=== PATIENT | male | born 1935 ===

== ENCOUNTER 2018-02-10 19:35 | Emergency (ER) | payer SELFPAY ==
[2018-02-10 19:50] VITALS: RESP 18; O2SAT 99
[2018-02-10 20:55] LABS: BASO # 0.1 K/uL (0.0-0.2); EOS # 0.1 K/uL (0.0-0.7); EOS % 2.2 % (0.0-4.0); HEMOGLOBIN 12.9 g/dL (12.0-18.0); LYMPH # 1.5 K/uL (1.0-4.3); LYMPH % 29.5 % (20.0-40.0); MEAN CELL VOLUME 88.4 fl (80.0-94.0); MEAN PLATELET VOLUME 8.9 fl (7.2-11.7); MONO # 0.7 K/uL (0.0-0.8); MONO % 12.9 % (0.0-10.0); NEUT # 2.8 K/uL (1.8-7.0); NEUT % 54.4 % (50.0-75.0); NRBC % 0.1 % (0.0-0.0); RBC 4.3 Mil/uL (4.40-5.90); RED CELL DISTRIBUTION WIDTH 13.1 % (11.5-14.5); WHITE BLOOD COUNT 5.2 K/uL (4.8-10.8)
[2018-02-10 21:08] LABS: INR 0.9; PROTHROMBIN TIME 10.2 Seconds (9.8-13.1)
--- NOTE | 2018-02-10 21:10 | ED PDOC ---
HPI: SOB/CHF/COPD Time Seen by Provider: 02/10/18 19:58 Chief Complaint (Nursing): Chest Pain Chief Complaint (Provider): Shortness of breath History Per: Patient History/Exam Limitations: no limitations Onset/Duration Of Symptoms: Hrs (x 3) Current Symptoms Are (Timing): Still Present Additional Complaint(s): 82 year old male presents to the ED with sudden onset of shortness of breath, lightheadedness and anxiousness beginning around 6pm today. Patient ate dinner 1/2 hour prior to onset. He is concerned about symptoms because he lives by himself. Currently, he feels better and now only reports mild shortness of breath. Denies chest pain, cough and leg swelling. PMD: none Past Medical History Reviewed: Historical Data, Nursing Documentation, Vital Signs Vital Signs: Last Vital Signs Temp 98.8 F 02/10/18 19:42 Pulse 71 02/10/18 19:42 Resp 18 02/10/18 19:42 BP 147/65 02/10/18 19:42 Pulse Ox 99 02/10/18 19:42 - Medical History PMH: No Chronic Diseases - Surgical History Surgical History: No Surg Hx - Family History Family History: States: No Known Family Hx - Social History Current smoker - smoking cessation education provided: No Alcohol: None Drugs: Denies - Allergies Allergies/Adverse Reactions: Allergies Allergy/AdvReac Type Severity Reaction Status Date / Time No Known Allergies Allergy Verified 02/10/18 19:42 Review of Systems ROS Statement: Except As Marked, All Systems Reviewed And Found Negative (and as per HPI) Constitutional: Positive for: Other (lightheadedness) Respiratory: Positive for: Shortness of Breath Psych: Positive for: Anxiety Physical Exam - Reviewed Nursing Documentation Reviewed: Yes Vital Signs Reviewed: Yes - Physical Exam Appears: Positive for: Well, Non-toxic, No Acute Distress Head Exam: Positive for: ATRAUMATIC, NORMAL INSPECTION, NORMOCEPHALIC Skin: Positive for: Warm, Dry, Pallor (mild) Eye Exam: Positive for: EOMI, Normal appearance, PERRL ENT: Positive for: Pharynx Is (clear), Other (tacky mucous membranes) Cardiovascular/Chest: Positive for: Regular Rate, Rhythm. Negative for: Murmur Respiratory: Positive for: Normal Breath Sounds. Negative for: Respiratory Distress Gastrointestinal/Abdominal: Positive for: Soft. Negative for: Tenderness Back: Positive for: Normal Inspection. Negative for: Decreased ROM Extremity: Positive for: Normal ROM. Negative for: Deformity Lymphatic: Negative for: Adenopathy Neurologic/Psych: Positive for: Alert, Mood/Affect (anxious ). Negative for: Motor/Sensory Deficits - Laboratory Results Result Diagrams: 02/10/18 20:48 02/10/18 20:48 - ECG ECG: Positive for: Interpreted By Me, Viewed By Me ECG Rhythm: Positive for: Normal QRS, Normal ST Segment, Sinus Rhythm (normal) Rate: 83 O2 Sat by Pulse Oximetry: 99 (RA) Pulse Ox Interpretation: Normal Medical Decision Making Medical Decision Makin:09 Impression: Shortness of breath Differential diagnoses include but are not limited to: anxiousness, electrolyte abnormalities, reflux and CHF Initial Plan: --Blood type --EKG --alcohol --BNP --CMP --mag Phos --TSH --Troponin --Urine dip --CBC --D Dimer --PTT/ INR --CXR 22:14 Patient's labs demonstrated no clinically significant abnormalities. Chest X- ray with no acute findings. Discussed findings with patient and patient is stable for discharge with follow up at clinic. ------- Scribe Attestation: Documented by Corinna Hughes and Shlomo Rodriguez acting as a scribe for Shirlene Mcneil MD Provider Scribe Attestation: All medical record entries made by the Scribe were at my direction and personally dictated by me. I have reviewed the chart and agree that the record accurately reflects my personal performance of the history, physical exam, medical decision making, and the department course for this patient. I have also personally directed, reviewed, and agree with the discharge instructions and disposition. Disposition - Clinical Impression Clinical Impression: Dyspnea - Disposition Referrals: [facility] [Outside] Disposition: Routine/Home Disposition Time: 22:30 Condition: IMPROVED Additional Instructions: VISITA A LA CLINICA POR LA MANANA A CHEQAR DE NUEVO Instructions: Shortness of Breath (Dyspnea) (DC)
[2018-02-10 21:11] LABS: PARTIAL THROMBOPLASTIN TIME 31.4 Seconds (25.6-37.1)
[2018-02-10 21:13] LABS: ALB/GLOB RATIO 1.3 (1.0-2.1); ALT/SGPT 19 U/L (21-72); AST/SGOT 24 U/L (17-59); BLOOD UREA NITROGEN 12 mg/dl (9-20); CALCIUM 8.8 mg/dL (8.4-10.2); D DIMER < 200 ng/mlDDU (0-230); GFR NON-AFRICAN AMERICAN > 60
[2018-02-10 21:22] LABS: B-TYPE NATRIURETIC PEPTIDE 243 pg/ml (0-900)
[2018-02-10 21:49] VITALS: BP 122/78
[2018-02-10 22:46] VITALS: TEMP 98.2
--- NOTE | 2018-02-11 08:39 | RAD ---
Date of service: 02/10/2018 HISTORY: sob COMPARISON: No prior. FINDINGS: LUNGS: No active pulmonary disease. PLEURA: No significant pleural effusion identified, no pneumothorax apparent. CARDIOVASCULAR: Normal. OSSEOUS STRUCTURES: No significant abnormalities. VISUALIZED UPPER ABDOMEN: Normal. OTHER FINDINGS: None. IMPRESSION: No acute cardiopulmonary disease appreciated.
--- NOTE | 2018-02-11 13:02 | CARD ---
APPROVED REPORT Date of service: 02/10/2018 EKG Measurement Heart [id number] <Conclusion> Normal sinus rhythm Normal ECG
[2018-02-11 15:56] VITALS: PULSE 83
== END 2018-02-10 23:37 | disposition home or self-care (01) ==
LOC: H.ER 19:35
DX: R06.00 Dyspnea, unspecified (principal); J44.9 Chronic obstructive pulmonary disease, unspecified
CPT/HCPCS: 71045; 80053; 83735; 83880; 84100; 84443; 84484; 85025; 85378; 85610; 85730; 86850; 86900; 93005; 99284; G0480

== ENCOUNTER 2018-04-22 19:54 | Emergency (ER) | payer MEDICARE, MEDICAID ==
[2018-04-22 19:54] VITALS: BMI 23.4
[2018-04-22 21:15] VITALS: O2SAT 100
--- NOTE | 2018-04-22 21:52 | ED PDOC ---
Lower Extremity Pain/Injury Time Seen by Provider: 04/22/18 21:23 Chief Complaint (Nursing): Lower Extremity Problem/Injury History Per: Patient History/Exam Limitations: no limitations Onset/Duration Of Symptoms: Days Additional Complaint(s): Patient states he has a painful callus on the bottom of his L foot for days. Denies any injury. Past Medical History Reviewed: Historical Data, Nursing Documentation, Vital Signs Vital Signs: Last Vital Signs Temp 97.8 F 04/22/18 21:14 Pulse 63 04/22/18 21:14 Resp 16 04/22/18 21:14 BP 192/82 H 04/22/18 21:14 Pulse Ox 100 04/22/18 21:14 - Medical History PMH: Back Problems, COPD, HTN, Schizophrenia Denies: Diabetes, Hepatitis, HIV, Chronic Kidney Disease, Seizures, Sexually Transmitted Disease - Family History Family History: States: Unknown Family Hx - Home Medications Home Medications: Ambulatory Orders Medication Instructions Recorded Ammonium Lactate 12% [Lac-Hydrin 1 applic TOP TID #1 bottle 04/28/16 12% Lotion (225 g)] amLODIPine [Norvasc] 5 mg PO DAILY #30 tab 04/28/16 risperiDONE [RisperDAL Tab] 0.5 mg PO HS #30 tab 04/28/16 Terbinafine HCl [Lamisil] 2 ml TP BID #1 spray 11/28/16 Clotrimazole 1% Cream [Lotrimin 1% 1 applic EXT BID #1 tube 10/18/17 CREAM] Naproxen [Naprosyn] 500 mg PO Q12H #20 tab 10/29/17 Docusate Sodium [Dulcolax Stool 100 mg PO DAILY #12 capsule 01/18/18 Softener] Ibuprofen [Motrin Tab] 600 mg PO Q6 #30 tab 01/18/18 Ibuprofen [Motrin] 600 mg PO Q6H PRN #20 tab 03/20/18 Cefpodoxime [Vantin] 100 mg PO BID #14 tab 04/16/18 - Allergies Allergies/Adverse Reactions: Allergies Allergy/AdvReac Type Severity Reaction Status Date / Time No Known Allergies Allergy Verified 04/22/18 21:19 Review of Systems ROS Statement: Except As Marked, All Systems Reviewed And Found Negative Physical Exam - Reviewed Nursing Documentation Reviewed: Yes Vital Signs Reviewed: Yes - Physical Exam Appears: Positive for: Well, Non-toxic, No Acute Distress Head Exam: Positive for: ATRAUMATIC, NORMAL INSPECTION, NORMOCEPHALIC Extremity: Positive for: Other (Poor footcare, callus of L foot on heel, no erythema/swelling, neurovascularly intact) - ECG O2 Sat by Pulse Oximetry: 100 Medical Decision Making Medical Decision Making: Patient presenting with small callus to foot. Advised to followup with podiatry Advised to take BP meds as prescribed Disposition - Clinical Impression Clinical Impression: Callus - Disposition Referrals: Podiatry Clinic [Outside] Disposition: Routine/Home Disposition Time: 21:52 Condition: STABLE Instructions: Corns and Calluses Forms: [facility] (Puerto Rican)
[2018-04-22 23:32] VITALS: BP 167/80; PULSE 69; RESP 17; TEMP 98.1
== END 2018-04-22 22:10 | disposition home or self-care (01) ==
LOC: H.ER 19:54 → MERGE 19:54 → H.ER 22:10
DX: L84 Corns and callosities (principal); I10 Essential (primary) hypertension; J44.9 Chronic obstructive pulmonary disease, unspecified; Z86.59 Personal history of other mental and behavioral disorders

== ENCOUNTER 2018-04-29 11:38 | Emergency (ER) | payer MEDICARE, MEDICAID ==
[2018-04-29 11:38] VITALS: BMI 23.4
[2018-04-29 11:53] VITALS: RESP 19
--- NOTE | 2018-04-29 13:41 | ED PDOC ---
HPI: General Adult Time Seen by Provider: 04/29/18 12:20 Chief Complaint (Nursing): GI Problem Chief Complaint (Provider): GI Problem History Per: Patient History/Exam Limitations: no limitations Onset/Duration Of Symptoms: Days (x 1 week ) Current Symptoms Are (Timing): Still Present Additional Complaint(s): 82 year old male with no medical history complaining of constipation for one week. Patient denies urinary symptoms, abdominal pain, vomiting and other medical complaints. PMD: Dr Baires Past Medical History Reviewed: Historical Data, Nursing Documentation, Vital Signs Vital Signs: Last Vital Signs Temp 98.1 F 04/29/18 11:52 Pulse 72 04/29/18 11:52 Resp 19 04/29/18 11:52 BP 149/70 04/29/18 11:52 Pulse Ox 99 04/29/18 11:52 - Medical History PMH: Back Problems, COPD, HTN, Schizophrenia Denies: Diabetes, Hepatitis, HIV, Chronic Kidney Disease, Seizures, Sexually Transmitted Disease - Surgical History Surgical History: No Surg Hx - Family History Family History: States: Unknown Family Hx - Home Medications Home Medications: Ambulatory Orders Medication Instructions Recorded Ammonium Lactate 12% [Lac-Hydrin 1 applic TOP TID #1 bottle 04/28/16 12% Lotion (225 g)] amLODIPine [Norvasc] 5 mg PO DAILY #30 tab 04/28/16 risperiDONE [RisperDAL Tab] 0.5 mg PO HS #30 tab 04/28/16 Terbinafine HCl [Lamisil] 2 ml TP BID #1 spray 11/28/16 Clotrimazole 1% Cream [Lotrimin 1% 1 applic EXT BID #1 tube 10/18/17 CREAM] Naproxen [Naprosyn] 500 mg PO Q12H #20 tab 10/29/17 Docusate Sodium [Dulcolax Stool 100 mg PO DAILY #12 capsule 01/18/18 Softener] Ibuprofen [Motrin Tab] 600 mg PO Q6 #30 tab 01/18/18 Ibuprofen [Motrin] 600 mg PO Q6H PRN #20 tab 03/20/18 Cefpodoxime [Vantin] 100 mg PO BID #14 tab 04/16/18 Polyethylene Glycol 3350 [Miralax] 17 pod PO DAILY #5 dose 04/29/18 - Allergies Allergies/Adverse Reactions: Allergies Allergy/AdvReac Type Severity Reaction Status Date / Time No Known Allergies Allergy Verified 04/23/18 14:03 Review of Systems ROS Statement: Except As Marked, All Systems Reviewed And Found Negative Gastrointestinal: Positive for: Constipation. Negative for: Nausea, Vomiting, Abdominal Pain, Diarrhea Genitourinary Male: Negative for: Dysuria, Frequency, Incontinence, Hematuria Physical Exam - Reviewed Nursing Documentation Reviewed: Yes Vital Signs Reviewed: Yes - Physical Exam Appears: Positive for: No Acute Distress Head Exam: Positive for: ATRAUMATIC, NORMAL INSPECTION, NORMOCEPHALIC Skin: Positive for: Normal Color, Warm, Dry Eye Exam: Positive for: EOMI, Normal appearance, PERRL Neck: Positive for: Normal, Painless ROM, Supple Cardiovascular/Chest: Positive for: Regular Rate, Rhythm. Negative for: Murmur Respiratory: Positive for: Normal Breath Sounds. Negative for: Respiratory Distress Gastrointestinal/Abdominal: Positive for: Normal Exam, Soft. Negative for: Tenderness, Distended, Guarding, Rebound Extremity: Positive for: Normal ROM (x4). Negative for: Deformity Neurologic/Psych: Positive for: Alert, Oriented (x3). Negative for: Motor/Sensory Deficits - ECG O2 Sat by Pulse Oximetry: 99 (RA) Pulse Ox Interpretation: Normal Medical Decision Making Medical Decision Makin:29 Impression: constipation Initial Plan: --urine dip --KUB (abdomen Flat) 14:25 COMPARISON: CT abdomen and pelvis from 01/18/2018. FINDINGS: BOWEL: There is moderate amount of stool in the colon. The bowel gas pattern is nonobstructive. BONES: Multilevel degenerative changes in the spine. OTHER FINDINGS: None. IMPRESSION: Constipation. No evidence for bowel obstruction. Scribe Attestation: Documented by Corinna Hughes acting as a scribe for Cristine Mane MD Provider Scribe Attestation: All medical record entries made by the Scribe were at my direction and personally dictated by me. I have reviewed the chart and agree that the record accurately reflects my personal performance of the history, physical exam, medical decision making, and the department course for this patient. I have also personally directed, reviewed, and agree with the discharge instructions and disposition. Disposition - Clinical Impression Clinical Impression: Constipation - Patient ED Disposition Is Patient to be Admitted: No Doctor Will See Patient In The: Office Counseled Patient/Family Regarding: Studies Performed, Diagnosis, Need For Followup - Disposition Referrals: [facility] [Outside] Disposition: Routine/Home Disposition Time: 14:27 Condition: GOOD Additional Instructions: DENISE PAYNE, thank you for letting us take care of you today. Your provider was Cristine Mane MD and you were treated for MALE GENITOURINARY. The emergency medical care you received today was directed at your acute symptoms. If you were prescribed any medication, please fill it and take as directed. It may take several days for your symptoms to resolve. Return to the Emergency Department if your symptoms worsen, do not improve, or if you have any other problems. Please contact your doctor or call one of the physicians/clinics you have been referred to that are listed on the Patient Visit Information form that is included in your discharge packet. Bring any paperwork you were given at discharge with you along with any medications you are taking to your follow up visit. Our treatment cannot replace ongoing medical care by a primary care provider outside of the emergency department. Thank you for allowing the [facility] team to be part of your care today. If you had an X-Ray or CT scan: A Radiologist will review the ED reading if any change in treatment is needed we will contact you. If you had a blood, urine, or wound culture: It will take several days for the results, if any change in treatment is needed we will contact you. If you had an STI test: It will take 48 hours for the results. Please call after 1 week if you have not heard back. Prescriptions: Polyethylene Glycol 3350 [Miralax] 17 pod PO DAILY #5 dose Instructions: Constipation in Adults Print Language: BULGARIAN
--- NOTE | 2018-04-29 14:17 | RAD ---
Date of service: 04/29/2018 HISTORY: constipation COMPARISON: CT abdomen and pelvis from 01/18/2018. FINDINGS: BOWEL: There is moderate amount of stool in the colon. The bowel gas pattern is nonobstructive. BONES: Multilevel degenerative changes in the spine. OTHER FINDINGS: None. IMPRESSION: Constipation. No evidence for bowel obstruction.
[2018-04-29 15:03] VITALS: BP 128/78; PULSE 80; TEMP 97.6; O2SAT 98
== END 2018-04-29 15:04 | disposition home or self-care (01) ==
LOC: H.ER 11:38
DX: K59.00 Constipation, unspecified (principal)

== ENCOUNTER 2018-06-20 19:39 | Emergency (ER) | payer MEDICARE, MEDICAID ==
[2018-06-20 19:39] VITALS: BMI 23.4
[2018-06-20 21:09] VITALS: BP 170/74; PULSE 66; RESP 18; TEMP 98.3; O2SAT 99
--- NOTE | 2018-06-20 23:18 | ED PDOC ---
HPI: Back Time Seen by Provider: 06/20/18 22:13 Chief Complaint (Nursing): Back Pain Chief Complaint (Provider): Dry Skin History Per: Patient Past Medical History Vital Signs: Last Vital Signs Temp 98.3 F 06/20/18 21:08 Pulse 66 06/20/18 21:08 Resp 18 06/20/18 21:08 BP 170/74 H 06/20/18 21:08 Pulse Ox 99 06/20/18 21:08 - Medical History PMH: Back Problems, COPD, HTN, Schizophrenia Denies: Diabetes, Hepatitis, HIV, Chronic Kidney Disease, Seizures, Sexually Transmitted Disease - Family History Family History: States: Unknown Family Hx - Home Medications Home Medications: Ambulatory Orders Medication Instructions Recorded Ammonium Lactate 12% [Lac-Hydrin 1 applic TOP TID #1 bottle 04/28/16 12% Lotion (225 g)] amLODIPine [Norvasc] 5 mg PO DAILY #30 tab 04/28/16 risperiDONE [RisperDAL Tab] 0.5 mg PO HS #30 tab 04/28/16 Terbinafine HCl [Lamisil] 2 ml TP BID #1 spray 11/28/16 Clotrimazole 1% Cream [Lotrimin 1% 1 applic EXT BID #1 tube 10/18/17 CREAM] Naproxen [Naprosyn] 500 mg PO Q12H #20 tab 10/29/17 Docusate Sodium [Dulcolax Stool 100 mg PO DAILY #12 capsule 01/18/18 Softener] Ibuprofen [Motrin Tab] 600 mg PO Q6 #30 tab 01/18/18 Ibuprofen [Motrin] 600 mg PO Q6H PRN #20 tab 03/20/18 Cefpodoxime [Vantin] 100 mg PO BID #14 tab 04/16/18 Polyethylene Glycol 3350 [Miralax] 17 pod PO DAILY #5 dose 04/29/18 - Allergies Allergies/Adverse Reactions: Allergies Allergy/AdvReac Type Severity Reaction Status Date / Time No Known Allergies Allergy Verified 04/23/18 14:03 - ECG O2 Sat by Pulse Oximetry: 99 Disposition - Disposition
== END 2018-06-20 22:26 | disposition home or self-care (01) ==
LOC: H.ER 19:39
DX: M54.9 Dorsalgia, unspecified (principal)

== ENCOUNTER 2018-07-13 12:49 | Emergency (ER) | payer MEDICARE, OTHER ==
[2018-07-13 12:49] VITALS: BMI 23.4
--- NOTE | 2018-07-13 13:45 | ED PDOC ---
HPI: Neurologic - General Time Seen by Provider: 07/13/18 13:00 Chief Complaint (Nursing): Lower Extremity Problem/Injury Chief Complaint (Provider): Weakness Source: patient Exam Limitations: no limitations - History of Present Illness Timing/Duration: 1 hour Severity: moderate Associated Symptoms: weakness. denies: loss of consciousness, other (dizziness, palpitations, chest pain, shortness of breath, unilateral weakness) Allergies/Adverse Reactions: Allergies No Known Allergies Allergy (Verified 07/13/18 12:52) Home Medications: Ambulatory Orders Ammonium Lactate 12% [Lac-Hydrin 12% Lotion (225 g)] 1 applic TOP TID #1 bottle 04/28/16 amLODIPine [Norvasc] 5 mg PO DAILY #30 tab 04/28/16 risperiDONE [RisperDAL Tab] 0.5 mg PO HS #30 tab 04/28/16 Terbinafine HCl [Lamisil] 2 ml TP BID #1 spray 11/28/16 Clotrimazole 1% Cream [Lotrimin 1% CREAM] 1 applic EXT BID #1 tube 10/18/17 Naproxen [Naprosyn] 500 mg PO Q12H #20 tab 10/29/17 Docusate Sodium [Dulcolax Stool Softener] 100 mg PO DAILY #12 capsule 01/18/18 Ibuprofen [Motrin Tab] 600 mg PO Q6 #30 tab 01/18/18 Ibuprofen [Motrin] 600 mg PO Q6H PRN #20 tab 03/20/18 Cefpodoxime [Vantin] 100 mg PO BID #14 tab 04/16/18 Polyethylene Glycol 3350 [Miralax] 17 pod PO DAILY #5 dose 04/29/18 Hydrocortisone/Oatmeal/Aloe/E [Aveeno 1% Cream] 2 gm TP BID #28 gr 06/20/18 Additional Complaint(s): 82 year old male with a past medical history of hypertension is brought into the ED by EMS after a fall that occurred 1x hour prior to arrival. Patient states that he was walking to the bank with a rolling walker when his arms started feeling weak, and his legs started feeling weak causing him to fall onto his knees. Patient denies having loss of consciousness, dizziness, palpitations, chest pain, shortness of breath, unilateral weakness, and knee pain. Patient is currently complaining of being hungry, as he has not eaten anything today. PMD: None provided. Past Medical History Reviewed: Historical Data, Nursing Documentation, Vital Signs Vital Signs: Last Vital Signs Temp 97.7 F 07/13/18 12:53 Pulse 82 07/13/18 12:53 Resp 20 07/13/18 12:53 BP 152/82 H 07/13/18 12:53 Pulse Ox 98 07/13/18 12:53 ALCIRA Report Viewed: Yes - Medical History PMH: Back Problems, COPD, HTN, Schizophrenia Denies: Diabetes, Hepatitis, HIV, Chronic Kidney Disease, Seizures, Sexually Transmitted Disease - Family History Family History: States: No Known Family Hx - Social History Alcohol: None Drugs: Denies - Home Medications Home Medications: Ambulatory Orders Medication Instructions Recorded Ammonium Lactate 12% [Lac-Hydrin 1 applic TOP TID #1 bottle 04/28/16 12% Lotion (225 g)] amLODIPine [Norvasc] 5 mg PO DAILY #30 tab 04/28/16 risperiDONE [RisperDAL Tab] 0.5 mg PO HS #30 tab 04/28/16 Terbinafine HCl [Lamisil] 2 ml TP BID #1 spray 11/28/16 Clotrimazole 1% Cream [Lotrimin 1% 1 applic EXT BID #1 tube 10/18/17 CREAM] Naproxen [Naprosyn] 500 mg PO Q12H #20 tab 10/29/17 Docusate Sodium [Dulcolax Stool 100 mg PO DAILY #12 capsule 01/18/18 Softener] Ibuprofen [Motrin Tab] 600 mg PO Q6 #30 tab 01/18/18 Ibuprofen [Motrin] 600 mg PO Q6H PRN #20 tab 03/20/18 Cefpodoxime [Vantin] 100 mg PO BID #14 tab 04/16/18 Polyethylene Glycol 3350 [Miralax] 17 pod PO DAILY #5 dose 04/29/18 Hydrocortisone/Oatmeal/Aloe/E 2 gm TP BID #28 gr 06/20/18 [Aveeno 1% Cream] - Allergies Allergies/Adverse Reactions: Allergies Allergy/AdvReac Type Severity Reaction Status Date / Time No Known Allergies Allergy Verified 07/13/18 12:52 Review of Systems ROS Statement: Except As Marked, All Systems Reviewed And Found Negative Constitutional: Positive for: Other (hungry) Cardiovascular: Negative for: Chest Pain, Palpitations Respiratory: Negative for: Shortness of Breath (weakness of hands and legs. (-) unilateral weakness) Musculoskeletal: Negative for: Other (knee pain) Neurological: Positive for: Weakness. Negative for: Dizziness Physical Exam - Reviewed Nursing Documentation Reviewed: Yes Vital Signs Reviewed: Yes - Physical Exam Appears: Positive for: Well, Non-toxic, No Acute Distress Head Exam: Positive for: ATRAUMATIC, NORMOCEPHALIC Skin: Positive for: Normal Color, Warm, Dry Eye Exam: Positive for: Normal appearance, EOMI, PERRL ENT: Positive for: Normal ENT Inspection Cardiovascular/Chest: Positive for: Regular Rate, Rhythm Respiratory: Positive for: Normal Breath Sounds Extremity: Positive for: Other (bilateral knees: mild ecchymosis on patella bilaterally. distal pulses 2+ bilaterally. normal ROM with flexion and extension of ankles and hips. ) Neurological/Psych: Positive for: Awake, Alert, Oriented (3x), Cerebellar Tests (able to perform alternating finger to nose), travel journalist II-XII (no tongue deviation, able to puff cheeks symmetrically, smile is symmetrical, strength equal in bilateral upper and lower extremities) - Laboratory Results Result Diagrams: 07/13/18 14:28 07/13/18 14:28 - ECG O2 Sat by Pulse Oximetry: 98 (RA) Pulse Ox Interpretation: Normal - CT Scan/US ct head w/o contrast Other Rad Studies (CT/US): Read By Radiologist, Radiology Report Reviewed (see MDM note) Medical Decision Making Medical Decision Makin:00 Initial impression: 82 year old male with weakness Initial plan: * CBC * CMP * EKG * telemetry * troponin I * CT head without contrast * urinalysis * urine culture * reevaluation 15:42 CT head read and reviewed by radiologist FINDINGS: HEMORRHAGE: No intracranial hemorrhage. BRAIN: No mass effect or edema. No atrophy or chronic microvascular ischemic changes. VENTRICLES: Unremarkable. No hydrocephalus. CALVARIUM: Unremarkable. PARANASAL SINUSES: Unremarkable as visualized. No significant inflammatory changes. MASTOID AIR CELLS: Unremarkable as visualized. No inflammatory changes. OTHER FINDINGS: None. IMPRESSION: Normal CT of the Head. 17:18 Discussed case with family practice resident regarding moving scheduled appointment date to this week, resident will arrange for patient to be called for a new appointment and will have a discussion about social media senior associate at that time. 17:24 Labs are within normal limits. Patient states that he feels well. Patient denies having dizziness, light headedness, and weakness. Patient is ambulating in ED with assistance with a walker and ER physical therapist technician. Patient has a steady gait. Patient continues to feel well. 18:28 Patient continues to feel well. EMS here for transport home. Patient is stable for discharge home. Scribe Attestation: Documented byElla Shaw, acting as a scribe for Eveline Stratton PA-C. Provider Scribe Attestation: All medical record entries made by the Scribe were at my direction and personally dictated by me. I have reviewed the chart and agree that the record accurately reflects my personal performance of the history, physical exam, medical decision making, and the department course for this patient. I have also personally directed, reviewed, and agree with the discharge instructions and disposition. Disposition - Clinical Impression Clinical Impression: Weakness - Disposition Referrals: [facility] [Outside] Everton Rich MD [Staff Provider] - Disposition Time: 18:28 Condition: STABLE Additional Instructions: Follow up with Dr. Rich at the clinic within the next week. You will be called with new appointment. Return to ER if you develop dizziness, weakness, palpitations, shortness of breath or chest pain. Instructions: Weakness (ED) Forms: [employer] ([place]) Print Language: [place] ISLAND[place]
[2018-07-13 14:34] LABS: BASO % 0.7 % (0.0-2.0); EOS % 0.5 % (0.0-4.0); HEMOGLOBIN 13.3 g/dL (12.0-18.0); LYMPH # 0.8 K/uL (1.0-4.3); LYMPH % 14.5 % (20.0-40.0); MEAN CELL VOLUME 85.5 fl (80.0-94.0); MEAN CORPUSCULAR HEMOGLOBIN 28.5 pg (27.0-31.0); MEAN CORPUSCULAR HGB CONC 33.3 g/dL (33.0-37.0); MEAN PLATELET VOLUME 9.2 fl (7.2-11.7); MONO # 0.4 K/uL (0.0-0.8); MONO % 7.7 % (0.0-10.0); NEUT # 4.4 K/uL (1.8-7.0); NEUT % 76.6 % (50.0-75.0); RBC 4.66 Mil/uL (4.40-5.90); RED CELL DISTRIBUTION WIDTH 14.1 % (11.5-14.5); WHITE BLOOD COUNT 5.7 K/uL (4.8-10.8)
[2018-07-13 14:48] LABS: ALB/GLOB RATIO 1.3 (1.0-2.1); ALT/SGPT 21 U/L (21-72); AST/SGOT 18 U/L (17-59); BLOOD UREA NITROGEN 14 mg/dl (9-20); CALCIUM 9.2 mg/dL (8.4-10.2); GFR NON-AFRICAN AMERICAN > 60
--- NOTE | 2018-07-13 15:45 | CT ---
Date of service: 07/13/2018 PROCEDURE: CT HEAD WITHOUT CONTRAST. HISTORY: s/p fall due to generalized weakness COMPARISON: None available. TECHNIQUE: Axial computed tomography images were obtained through the head/brain without intravenous contrast. Radiation dose: Total exam DLP = 830.78 mGy-cm. This CT exam was performed using one or more of the following dose reduction techniques: Automated exposure control, adjustment of the mA and/or kV according to patient size, and/or use of iterative reconstruction technique. FINDINGS: HEMORRHAGE: No intracranial hemorrhage. BRAIN: No mass effect or edema. No atrophy or chronic microvascular ischemic changes. VENTRICLES: Unremarkable. No hydrocephalus. CALVARIUM: Unremarkable. PARANASAL SINUSES: Unremarkable as visualized. No significant inflammatory changes. MASTOID AIR CELLS: Unremarkable as visualized. No inflammatory changes. OTHER FINDINGS: None. IMPRESSION: Normal CT of the Head.
[2018-07-13 15:47] LABS: URINE BACTERIA RARE (<OCC); URINE BILIRUBIN NEGATIVE (NEGATIVE); URINE BLOOD NEGATIVE (NEGATIVE); URINE CLARITY CLEAR (Clear); URINE COLOR YELLOW (YELLOW); URINE GLUCOSE (UA) NEG (NEGATIVE); URINE LEUKOCYTE ESTERASE NEG Leu/uL (Negative); URINE PROTEIN 30 mg/dL (NEGATIVE); URINE UROBILINOGEN 0.2-1.0 mg/dL (0.2-1.0)
[2018-07-13 16:09] VITALS: RESP 18
[2018-07-13 17:21] VITALS: O2SAT 98
[2018-07-13 18:33] VITALS: BP 148/80; PULSE 78; TEMP 98
--- NOTE | 2018-07-14 20:08 | CARD ---
APPROVED REPORT Date of service: 07/13/2018 EKG Measurement Heart [id number] [place] [id number] <Conclusion> Normal sinus rhythm Normal ECG
== END 2018-07-13 18:30 | disposition home or self-care (01) ==
LOC: H.ER 12:49
DX: R53.1 Weakness (principal); Z86.59 Personal history of other mental and behavioral disorders; I10 Essential (primary) hypertension; J44.9 Chronic obstructive pulmonary disease, unspecified

== ENCOUNTER 2018-07-17 11:51 | Emergency (ER) | payer MEDICARE ==
[2018-07-17 11:56] VITALS: BMI 25.4
[2018-07-17 11:57] VITALS: O2SAT 99
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
[2018-07-17 13:35] LABS: BASO % 0.8 % (0.0-2.0); EOS % 0.5 % (0.0-4.0); HEMOGLOBIN 12.8 g/dL (12.0-18.0); LYMPH # 0.8 K/uL (1.0-4.3); LYMPH % 19.7 % (20.0-40.0); MEAN CELL VOLUME 86.6 fl (80.0-94.0); MEAN CORPUSCULAR HEMOGLOBIN 28.5 pg (27.0-31.0); MEAN CORPUSCULAR HGB CONC 32.9 g/dL (33.0-37.0); MEAN PLATELET VOLUME 9.4 fl (7.2-11.7); MONO # 0.5 K/uL (0.0-0.8); MONO % 10.6 % (0.0-10.0); NEUT # 2.9 K/uL (1.8-7.0); NEUT % 68.4 % (50.0-75.0); NRBC % 0.2 % (0.0-0.0); RBC 4.48 Mil/uL (4.40-5.90); RED CELL DISTRIBUTION WIDTH 13.9 % (11.5-14.5); WHITE BLOOD COUNT 4.3 K/uL (4.8-10.8)
[2018-07-17 14:14] LABS: BLOOD UREA NITROGEN 17 mg/dl (9-20); GFR NON-AFRICAN AMERICAN > 60
[2018-07-17 14:15] LABS: ALB/GLOB RATIO 1.4 (1.0-2.1); ALT/SGPT 19 U/L (21-72); AST/SGOT 18 U/L (17-59); CALCIUM 9.2 mg/dL (8.4-10.2)
[2018-07-17 15:21] VITALS: BP 152/84; PULSE 78; RESP 16; TEMP 98.6
--- NOTE | 2018-07-18 09:08 | CARD ---
APPROVED REPORT Date of service: 07/17/2018 EKG Measurement Heart [id number] <Conclusion> Normal sinus rhythm Normal ECG
== END 2018-07-17 15:21 | disposition home or self-care (01) ==
LOC: H.ER 11:51
DX: S60.512A Abrasion of left hand, initial encounter (principal); W19.XXXA Unspecified fall, initial encounter; Y92.410 Unspecified street and highway as the place of occurrence of the external cause; I10 Essential (primary) hypertension; F20.9 Schizophrenia, unspecified; J44.9 Chronic obstructive pulmonary disease, unspecified